=== PATIENT | male | born 1955 | race Caucasian/White ===

== ENCOUNTER → 2025-02-03 | Outpatient (CLI) | payer MEDICARE, MEDICAID ==
[~2025-02-03] MED LIST: AMOX1TAB12 PO
[2025-02-03 12:28] LABS: BASOPHIL # 0.0 10^3/uL (0.0-0.1); BASOPHIL % 0.2 % (0.2-1.2); EOSINOPHIL # 0.2 10^3/uL (0.0-0.2); EOSINOPHIL % 1.4 % (0.0-5.0); HEMATOCRIT(ML) 47.7 % (37.0-53.0); IG % 0.30 % (0.00-0.50); LYMPHOCYTES # 1.90 10^3/uL1 (1.0-4.8); LYMPHOCYTES % 15.5 % (24.0-44.0); MEAN CORP HGB 28.5 pg (26-34); MEAN CORP HGB CONCENTRATION 33.3 g/dL (33-36.5); MEAN CORP VOLUME 85.5 fL (78-100); MONOCYTES # 1.4 10^3/uL (0.3-0.8); MONOCYTES % 11.0 % (5.0-12.0); NEUTROPHIL # 8.8 10^3/uL (1.8-7.7); NEUTROPHILS % 71.6 % (41.0-85.0); RED BLOOD CELL 5.58 10^6/uL (4.50-5.90); RED CELL DISTRIBUTION WIDTH 14.2 % (11.5-14.5); WHITE BLOOD CELL 12.3 10^3/uL (4.5-11.0)
[2025-02-03 12:57] LABS: ALANINE AMINOTRANSFERASE(ML) 21.0 U/L (12-78); ALBUMIN(ML) 3.4 g/dL (3.4-5.0); CREATININE SERUM 1.62 mg/dL (0.59-1.40); EST GFR, NON-AA 42.3 (>/=60); LDL/HDL RATIO 1.4
== END | disposition home or self-care (01) ==
LOC: LAB 11:33
PROVIDERS: ATTEND Nurse Practitioner Family
DX: Z12.5 Encounter for screening for malignant neoplasm of prostate (principal); I10 Essential (primary) hypertension; E11.65 Type 2 diabetes mellitus with hyperglycemia; Z79.899 Other long term (current) drug therapy
CPT/HCPCS: 36415; 80053; 80061; 83036; 84153; 84439; 84443; 85025

== ENCOUNTER 2025-02-06 11:42 | Emergency (ER) | payer MEDICARE, MEDICAID ==
[~2025-02-06] VITALS: Ht 175.3 cm; Wt 132.0 kg
[2025-02-06 11:45] VITALS: BP 169/87; PULSE 72; RESP 18; TEMP 97.9; O2SAT 94
[2025-02-06 12:49] VITALS: BP 147/71; PULSE 66; RESP 18; O2SAT 96
[2025-02-06] MEDS ORDERED: AMOX1TAB12 PO (13:13)
== END 2025-02-06 13:14 | disposition home or self-care (01) ==
LOC: ER 11:42
DX: L03.012 Cellulitis of left finger (principal); E11.9 Type 2 diabetes mellitus without complications
CPT/HCPCS: 99283